=== PATIENT | male | born 1970 | race Caucasian/White ===

== ENCOUNTER 2021-09-17 01:02 | Inpatient (IN) ==
[2021-09-17 02:28] LABS: Basophils % 0.6 %; Hematocrit 41.6 % (37.5-50.1); Hemoglobin 14.6 g/dL (12.9-16.9); Immature Granulocytes % 0.1 % (0-4); Lymphocytes # 0.6 K/mcL (0.6-4.6); Lymphocytes % 8.1 %; Mean Corpuscular HGB Conc 35.1 g/dL (31.6-35.5); Mean Corpuscular Hemoglobin 30.7 pg (28.0-33.3); Mean Corpuscular Volume 87.4 fL (83.0-100.0); Mean Platelet Volume 8.8 fL (9.4-12.4); Monocytes # 0.7 K/mcL (0.0-1.3); Monocytes % 10.2 %; Neutrophils # 5.9 K/mcL (1.6-8.9); Platelet Count 221 K/mcL (140-400); Red Blood Count 4.76 M/mcL (4.19-5.50); Red Cell Distribution Width 12.6 % (11.5-14.5); White Blood Count 7.3 K/mcL (4.3-11.1)
[2021-09-17 02:48] LABS: Acetaminophen < 10 mcg/mL (10-20); Alanine Aminotransferase 83 Units/L (7-52); Albumin 4.5 g/dL (3.5-5.7); Albumin/Globulin Ratio 1.7 (1.1-2.2); Alkaline Phosphatase 91 Units/L (34-104); Aspartate Amino Transferase 42 Units/L (13-39); BUN/Creatinine Ratio 17 (6-26); Bilirubin,Direct 0.1 mg/dL (0.0-0.2); Bilirubin,Indirect 0.8 mg/dL (0.0-1.0); Bilirubin,Total 0.9 mg/dL (0.3-1.0); Blood Urea Nitrogen 18 mg/dL (6-20); Calcium 9.2 mg/dL (8.6-10.3); Carbon Dioxide 25 mEq/L (23-29); Chloride 103 mEq/L (98-107); Chol/HDL Ratio 5.5 (0-4.9); Cholesterol 182 mg/dL (< 200); Ethanol < 10 mg/dL (Less than 10); Globulin 2.7 g/dL (2.4-3.5); Glucose 90 mg/dL (70-105); HDL Cholesterol 33 mg/dL (40-59); LDL Cholesterol,Calculated 69 mg/dL (< 100); Osmolality,Calculated 285 (280-300); Potassium 3.9 mEq/L (3.5-5.1); Salicylate < 2.5 mg/dL (15.0-30.0); Sodium 137 mEq/L (136-145); Total Protein 7.2 g/dL (6.4-8.9); Triglycerides 398 mg/dL (< 150); eGFR For African Americans > 60 (> 60); eGFR For Non-African Americans > 60 (> 60)
[2021-09-17 03:32] LABS: Estimated Average Glucose 94 mg/dl; Hemoglobin A1C 4.9 %
[2021-09-17 03:44] LABS: Influenza A PCR Negative (Negative); Influenza B PCR Negative (Negative); Resp. Syncytial Virus PCR Negative (Negative)
[2021-09-17 03:49] LABS: SARS-CoV-2 by PCR (In House) Positive (Negative)
[2021-09-17 05:14] LABS: Amphetamine Screen,Urine Negative ng/mL (Cutoff=1000); Barbiturate Screen,Urine Negative ng/mL (Cutoff=200); Benzodiazepines Screen,Urine Negative ng/mL (Cutoff=200); Cannabinoid Screen,Urine Negative ng/mL (Cutoff = 50); Cocaine Screen,Urine Negative ng/mL (Cutoff= 300); Opiate Screen,Urine Negative ng/mL (Cutoff=300); Phencyclidine Screen,Urine Negative ng/mL (Cutoff=25)
[2021-09-17 05:16] LABS: Bilirubin,Urine Negative (Negative); Blood,Urine Negative (Negative); Clarity,Urine Clear (Clear); Color,Urine Light-Yellow (Yellow); Glucose,Urine (UA) Normal (Normal); Ketones,Urine Negative (Negative); Leukocyte Esterase,Urine Negative (Negative); Nitrite,Urine Negative (Negative); Protein,Urine Negative (Neg-Trace); Urobilinogen,Urine Normal (Normal)
[2021-09-17] MEDS: FLUoxetine HCl 10 MG CAPSULE PO SCH (12:25)
[2021-09-17] MEDS ORDERED: traZODone 50 MG TABLET PO ONE (21:30)
[2021-09-18] MEDS: FLUoxetine HCl 10 MG CAPSULE PO SCH (10:19)
[2021-09-18] MEDS: FLUoxetine 20 MG CAPSULE PO SCH (17:31)
[2021-09-18] MEDS: traZODone 50 MG TABLET PO SCH (21:52)
[2021-09-18] MEDS ORDERED: Ondansetron 4 MG/2 ML VIAL IVP PRN (23:49)
[2021-09-18] MEDS ORDERED: Naloxone 0.4 MG/ML INJ IVP PRN (23:49)
[2021-09-18] MEDS ORDERED: Acetaminophen 325 MG TABLET PO PRN (23:49)
[2021-09-19] MEDS: FLUoxetine 20 MG CAPSULE PO SCH ×2 (08:18→16:47)
[2021-09-19] MEDS ORDERED: hydrOXYzine pamoate 25 MG CAPSULE PO PRN (13:04)
[2021-09-19] MEDS: ARIPiprazole 5 MG TABLET PO SCH (22:34)
[2021-09-19] MEDS: traZODone 50 MG TABLET PO SCH (22:34)
[2021-09-20] MEDS: FLUoxetine 20 MG CAPSULE PO SCH ×2 (09:41→17:40)
[2021-09-20] MEDS: ARIPiprazole 5 MG TABLET PO SCH (21:44)
[2021-09-20] MEDS: traZODone 50 MG TABLET PO SCH (21:45)
[2021-09-21] MEDS: *HR* Enoxaparin 40 MG/0.4 ML SYRINGE SQ SCH (05:53)
[2021-09-21] MEDS: FLUoxetine 20 MG CAPSULE PO SCH ×2 (08:29→18:13)
[2021-09-21] MEDS: ARIPiprazole 5 MG TABLET PO SCH (22:05)
[2021-09-21] MEDS: traZODone 50 MG TABLET PO SCH (22:06)
[2021-09-22] MEDS: *HR* Enoxaparin 40 MG/0.4 ML SYRINGE SQ SCH (05:31)
[2021-09-22] MEDS: FLUoxetine 20 MG CAPSULE PO SCH ×2 (08:14→17:25)
[2021-09-22] MEDS: ARIPiprazole 5 MG TABLET PO SCH (22:05)
[2021-09-22] MEDS: traZODone 50 MG TABLET PO SCH (22:05)
[2021-09-23] MEDS: *HR* Enoxaparin 40 MG/0.4 ML SYRINGE SQ SCH (06:19)
[2021-09-23] MEDS: FLUoxetine 20 MG CAPSULE PO SCH (08:47)
[2021-09-23 10:14] VITALS: BP 115/70; PULSE 79; TEMP 98.3; O2SAT 94
== END 2021-09-23 11:57 | DRG 885 ==
LOC: 3ANU 01:02 → EMEROOARM 01:02 → SUATTDRO 09-18 23:33 → 3ANU 09-19 00:30
PROVIDERS: ADMIT Internal Medicine; ATTEND Internal Medicine

== ENCOUNTER 2022-02-26 19:09 | Observation (INO) ==
[2022-02-27 01:57] LABS: Basophils % 0.5 %; Hemoglobin 14.7 g/dL (12.9-16.9); Immature Granulocytes % 0.3 % (0-4); Lymphocytes # 1.2 K/mcL (0.6-4.6); Lymphocytes % 16.7 %; Mean Corpuscular Hemoglobin 31.3 pg (28.0-33.3); Mean Corpuscular Volume 89.4 fL (83.0-100.0); Mean Platelet Volume 9.1 fL (9.4-12.4); Monocytes # 0.6 K/mcL (0.0-1.3); Monocytes % 7.7 %; Neutrophils # 5.5 K/mcL (1.6-8.9); Platelet Count 233 K/mcL (140-400); Red Cell Distribution Width 12.4 % (11.5-14.5); Segmented Neutrophils % 74.8 %; White Blood Count 7.3 K/mcL (4.3-11.1)
[2022-02-27 02:13] LABS: BUN/Creatinine Ratio 14 (6-26); Blood Urea Nitrogen 15 mg/dL (6-20); Calcium 9.2 mg/dL (8.6-10.3); Carbon Dioxide 24 mEq/L (23-29); Chloride 107 mEq/L (98-107); Glucose 101 mg/dL (70-105); Osmolality,Calculated 293 (280-300); Potassium 3.9 mEq/L (3.5-5.1); Sodium 141 mEq/L (136-145); eGFR For African Americans > 60 (> 60); eGFR For Non-African Americans > 60 (> 60)
[2022-02-27] MEDS ORDERED: Iopamidol - 370 500 ML MLS IVP ONE (02:35)
[2022-02-27] MEDS ORDERED: traZODone 50 MG TABLET PO STA (04:03)
[2022-02-27] MEDS ORDERED: Melatonin 3 MG TABLET PO STA (04:07)
[2022-02-27 04:34] LABS: Amphetamine Screen,Urine Negative ng/mL (Cutoff=1000); Barbiturate Screen,Urine Negative ng/mL (Cutoff=200); Benzodiazepines Screen,Urine Negative ng/mL (Cutoff=200); Cannabinoid Screen,Urine Negative ng/mL (Cutoff = 50); Cocaine Screen,Urine Negative ng/mL (Cutoff= 300); Opiate Screen,Urine Negative ng/mL (Cutoff=300); Phencyclidine Screen,Urine Negative ng/mL (Cutoff=25)
[2022-02-27 04:39] LABS: Bilirubin,Urine Negative (Negative); Blood,Urine Negative (Negative); Clarity,Urine Clear (Clear); Color,Urine Light-Yellow (Yellow); Glucose,Urine (UA) Normal (Normal); Ketones,Urine Negative (Negative); Leukocyte Esterase,Urine Negative (Negative); Nitrite,Urine Negative (Negative); Protein,Urine Trace mg/dL (Neg-Trace); Specific Gravity,Urine > 1.030 (1.010-1.025); Urobilinogen,Urine Normal (Normal)
[2022-02-27 04:48] LABS: Influenza A PCR Negative (Negative); Influenza B PCR Negative (Negative); Resp. Syncytial Virus PCR Negative (Negative)
[2022-02-27 04:49] LABS: SARS-CoV-2 by PCR (In House) Negative (Negative)
[2022-02-27] MEDS ORDERED: Naloxone 0.4 MG/ML INJ IVP PRN (09:20)
[2022-02-27] MEDS ORDERED: Ondansetron 4 MG/2 ML VIAL IVP PRN (09:20)
[2022-02-27] MEDS ORDERED: Melatonin 3 MG TABLET PO PRN (09:20)
[2022-02-27] MEDS ORDERED: hydrOXYzine pamoate 25 MG CAPSULE PO PRN (13:23)
[2022-02-27] MEDS: Melatonin 3 MG TABLET PO PRN (21:52)
[2022-02-27] MEDS: traZODone 50 MG TABLET PO SCH (21:52)
[2022-02-28 01:31] LABS: Basophils % 0.5 %; Eosinophils % 0.7 %; Hemoglobin 13.2 g/dL (12.9-16.9); Immature Granulocytes % 0.2 % (0-4); Lymphocytes # 1.6 K/mcL (0.6-4.6); Lymphocytes % 27.4 %; Mean Corpuscular HGB Conc 34.7 g/dL (31.6-35.5); Mean Corpuscular Hemoglobin 31.1 pg (28.0-33.3); Mean Corpuscular Volume 89.6 fL (83.0-100.0); Mean Platelet Volume 9.2 fL (9.4-12.4); Monocytes # 0.5 K/mcL (0.0-1.3); Monocytes % 8.5 %; Neutrophils # 3.7 K/mcL (1.6-8.9); Platelet Count 208 K/mcL (140-400); Red Blood Count 4.24 M/mcL (4.19-5.50); Red Cell Distribution Width 12.4 % (11.5-14.5); Segmented Neutrophils % 62.7 %; White Blood Count 5.9 K/mcL (4.3-11.1)
[2022-02-28 01:50] LABS: BUN/Creatinine Ratio 17 (6-26); Blood Urea Nitrogen 19 mg/dL (6-20); Calcium 8.9 mg/dL (8.6-10.3); Carbon Dioxide 25 mEq/L (23-29); Chloride 105 mEq/L (98-107); Glucose 121 mg/dL (70-105); Osmolality,Calculated 292 (280-300); Potassium 3.7 mEq/L (3.5-5.1); Sodium 139 mEq/L (136-145); eGFR For African Americans > 60 (> 60); eGFR For Non-African Americans > 60 (> 60)
[2022-02-28 17:18] LABS: Influenza A PCR Negative (Negative); Influenza B PCR Negative (Negative); Resp. Syncytial Virus PCR Negative (Negative)
[2022-02-28 17:19] LABS: SARS-CoV-2 by PCR (In House) Negative (Negative)
[2022-02-28] MEDS: traZODone 50 MG TABLET PO SCH (22:09)
[2022-02-28] MEDS: Melatonin 3 MG TABLET PO PRN (22:16)
[2022-03-01 06:49] VITALS: BP 114/64; PULSE 74; TEMP 98.2; O2SAT 94
== END 2022-03-01 10:15 ==
LOC: EMEROOARM 19:09 → 3BNU 19:09 → SUATTDRO 02-27 08:44 → 3BNU 02-27 09:06
PROVIDERS: ADMIT Internal Medicine; ATTEND Internal Medicine